=== PATIENT | female | born 1985 | race African-American/Black ===

== ENCOUNTER 2018-05-16 14:06 | Emergency (ER) | payer OTHER ==
[2018-05-16 14:15] VITALS: BP 132/85; TEMP 98; BMI 23.3
[2018-05-16] MEDS ORDERED: SODIUM CHLORIDE 1,000 ML IV STA (14:29)
--- NOTE | 2018-05-16 14:31 | PDOC ---
History of Present Illness - General Chief Complaint: Pain Stated Complaint: ABD Time Seen by Provider: 05/16/18 14:22 History Source: Patient - History of Present Illness Timing/Duration: reports: getting worse, intermittent Abdominal Pain Onset Location: reports: generalized abdomen Past History - Past Medical History Allergies/Adverse Reactions: Allergies Allergy/AdvReac Type Severity Reaction Status Date / Time No Known Allergies Allergy Verified 05/16/18 14:13 Home Medications: Ambulatory Orders Unobtainable 05/16/18 COPD: No - Suicide/Smoking/Psychosocial Hx Smoking History: Never smoked Have you smoked in the past 12 months: No Information on smoking cessation initiated: No Hx Alcohol Use: No Drug/Substance Use Hx: No Review of Systems - Review of Systems Constitutional: Yes: Weakness. No: Chills, Fever ABD/GI: Yes: Diarrhea, Abdominal cramping. No: Constipated, Nausea, Rectal Bleeding, Vomiting : No: Dysuria *Physical Exam - Vital Signs Last Vital Signs Temp Pulse Resp BP Pulse Ox 98.0 F 102 H 16 132/85 97 05/16/18 14:13 05/16/18 14:13 05/16/18 14:13 05/16/18 14:13 05/16/18 14:13 - Physical Exam General Appearance: Yes: Appropriately Dressed, Mild Distress HEENT: positive: Normal Voice Neck: positive: Supple Respiratory/Chest: negative: Respiratory Distress Gastrointestinal/Abdominal: positive: Normal Bowel Sounds, Tender, Soft. negative: Distended, Guarding, Rebound Integumentary: positive: Dry, Warm Neurologic: positive: Fully Oriented, Alert, Normal Mood/Affect Moderate Sedation - Procedure Monitoring Vital Signs: Procedure Monitoring Vital Signs Temperature 98.0 F 05/16/18 14:13 Pulse Rate 102 H 05/16/18 14:13 Respiratory Rate 16 05/16/18 14:13 Blood Pressure 132/85 05/16/18 14:13 O2 Sat by Pulse Oximetry (%) 97 05/16/18 14:13 ED Treatment Course - LABORATORY CBC & Chemistry Diagram: 05/16/18 14:55 05/16/18 14:55 Medical Decision Making - Medical Decision Making 05/16/18 14:27 33 yo F, GERD, not on medication, here with persistent diarrhea. Patient states for the past 2 weeks has had intermittent non-bloody watery diarrhea and developed diffuse abdominal pain and nausea for the first time today. Now complaining of generalized weakness. No nausea, vomiting, fever or chills. No history of similar episode. No sick contacts, recent travel, antibiotic use or unusual food See exam Persistent diarrhea No RF for serious dysentery Tachy to 102 and appears uncomfortable w/ minimal abd ttp diffusely -IVF -pain control -labs including stool studies 05/16/18 17:00 Labs unremarkable. Patient reports resolution of pain in ED and feels well enough to go home w/ supportive tx. Abd benign w/ HR 90 on my reassessment. Unable to give a stool sample here, but states she'll follow-up with her PMD on Saturday to arrange stool studies. Reasons to return discussed with patient *DC/Admit/Observation/Transfer Diagnosis at time of Disposition: Diarrhea Qualifiers: Diarrhea type: unspecified type Qualified Code(s): R19.7 - Diarrhea, unspecified - Discharge Dispostion Disposition: HOME Condition at time of disposition: Improved - Referrals Referrals: Sharmin Jones MD [Primary Care Provider] - - Patient Instructions Printed Discharge Instructions: Diarrhea Additional Instructions: Your labs were normal here. You were unable to give us a stool sample here and was advised to follow-up with your PMD on Saturday to arrange for stool sample to be sent. In the meantime maintain adequate hydration and return to ER for worsening of symptoms - Post Discharge Activity Forms/Work/School Notes: Back to Work
[2018-05-16] MEDS ORDERED: ACETAMINOPHEN 1000 MG/100 ML VIAL (NON FORMULARY) IVPB ONE (14:36)
[2018-05-16 15:06] LABS: BASO % 0.3 % (0-2.0); EOS % 0.5 % (0-4.5); HEMATOCRIT 45.9 % (32.4-45.2); HEMOGLOBIN 15.6 GM/dL (10.7-15.3); MCH 32.1 pg (25.7-33.7); MCHC 34.1 g/dl (32.0-36.0); MEAN CELL VOLUME 94.2 fl (80-96); MEAN PLT VOLUME 8.7 fl (7.5-11.1); MONO % 3.5 % (3.8-10.2); NEUT % 89.7 % (42.8-82.8); PLATELET COUNT 227 K/MM3 (134-434); RBC 4.87 M/mm3 (3.60-5.2); RDW 13.3 % (11.6-15.6); WHITE BLOOD COUNT 10.6 K/mm3 (4.0-10.0)
[2018-05-16 15:42] LABS: ALBUMIN 4.3 g/dl (3.4-5.0); ALK PHOS 60 U/L (45-117); ANION GAP 9 MMOL/L (8-16); BILIRUBIN,TOTAL 1.5 mg/dL (0.2-1); BLOOD UREA NITROGEN 11 mg/dL (7-18); CALCIUM 9.4 mg/dL (8.5-10.1); CHLORIDE 106 mmol/L (98-107); CO2 25 mmol/L (21-32); CREATININE 0.9 mg/dL (0.55-1.3); GLUCOSE,RANDOM 81 mg/dL (74-106); LIPASE 127 U/L (73-393); POTASSIUM 4.3 mmol/L (3.5-5.1); SGOT/AST 23 U/L (15-37); SGPT/ALT 34 U/L (13-61); SODIUM 140 mmol/L (136-145); TOT PROT 8.1 g/dl (6.4-8.2)
[2018-05-16 15:43] LABS: URINE APPEARANCE SLCLOUDY; URINE BILIRUBIN NEGATIVE (<2.0 mg/dL); URINE COLOR DKYELLOW; URINE GLUCOSE (UA) NEGATIVE (NEGATIVE); URINE KETONE 2+ (NEGATIVE); URINE LEUK ESTERASE 2+ (NEGATIVE); URINE NITRITE NEGATIVE (NEGATIVE); URINE PROTEIN NEGATIVE (NEGATIVE); URINE UROBILINOGEN NEGATIVE mg/dL (0.2-1.0)
[2018-05-16 15:50] LABS: EPI CELLS FEW /HPF (FEW); URINE BACTERIA RARE /hpf (NONE SEEN); URINE MUCUS MANY
[2018-05-16 17:25] VITALS: PULSE 89
== END 2018-05-16 17:05 | disposition home or self-care (01) ==
LOC: JER 14:06
PROC: 3E033NZ Introduction of Analgesics, Hypnotics, Sedatives into Peripheral Vein, Percutaneous Approach (ICD-10-PCS; principal; 2018-05-16)
PROC: 3E0337Z Introduction of Electrolytic and Water Balance Substance into Peripheral Vein, Percutaneous Approach (ICD-10-PCS; 2018-05-16)
DX: R19.7 Diarrhea, unspecified (principal)
CPT/HCPCS: 36415; 80053; 81003; 81015; 83690; 84703; 85025; 99282-25; J0131; J7030

== ENCOUNTER → 2018-08-07 | Day surgery (SDC) | payer OTHER ==
--- NOTE | 2018-08-08 16:11 | PATH ---
Cytology Non-Gynecological Report Patient Name: NATTY ESQUIVEL [facility]. Rec. #: [id number] /Age/Gender: 1985 (Age: 33) / F Account: [id number] Location: RADIOLOGY INTER Taken: 08/07/2018 Received: 08/07/2018 Reported: 08/08/2018 Physicians: Ronan Pereira M.D. Specimen(s) Received RIGHT THYROID FNA Clinical History Right 1.39 x 0.88 x 1.09 cm Final Diagnosis THYROID, RIGHT, FINE NEEDLE ASPIRATION: SATISFACTORY FOR EVALUATION B[place] CATEGORY II: BENIGN (NO MALIGNANT CELLS IDENTIFIED) BENIGN FOLLICULAR CELLS AND HURTHLE CELLS WITH SCATTERED INFILTRATING LYMPHOCYTES AND A LYMPHOID RICH BACKGROUND, ALONG WITH MODERATE TO ABUNDANT COLLOID PRESENT. 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 Recommend correlation with clinical findings and follow up as clinically indicated. Electronically Signed Jarrod Renner M.D. Gross Description Received are eight direct smears, four of which are air-dried and Diff-Quik stained, and four of which are alcohol fixed and Pap stained. Also received is 20 ml of bloody formalin from which one cellblock is prepared.
== END | disposition home or self-care (01) ==
LOC: JRADIR 08:47 → EDSTATUS 10:00
PROVIDERS: ATTEND Internal Medicine Endocrinology, Diabetes & Metabolism
PROC: 0G9H3ZX Drainage of Right Thyroid Gland Lobe, Percutaneous Approach, Diagnostic (ICD-10-PCS; principal; 2018-08-07)
DX: E04.1 Nontoxic single thyroid nodule (principal)
CPT/HCPCS: 76942; 88173; 88305-TC

== ENCOUNTER 2021-05-20 10:03 | Emergency (ER) | payer OTHER ==
[2021-05-20 10:17] VITALS: BP 117/75; PULSE 75; TEMP 97.6; BMI 24.3
== END 2021-05-20 10:40 | disposition home or self-care (01) ==
LOC: JERFT 10:03
DX: S29.012A Strain of muscle and tendon of back wall of thorax, initial encounter (principal); S59.901A Unspecified injury of right elbow, initial encounter; W00.0XXA Fall on same level due to ice and snow, initial encounter
CPT/HCPCS: 99281-25

== ENCOUNTER 2023-01-01 20:33 | Emergency (ER) | payer OTHER ==
[2023-01-01 20:39] VITALS: BP 124/87; PULSE 106; RESP 18; TEMP 98.4; BMI 26.5
== END 2023-01-01 22:16 | disposition home or self-care (01) ==
LOC: JERFT 20:33
DX: R09.81 Nasal congestion (principal); J06.9 Acute upper respiratory infection, unspecified; J31.0 Chronic rhinitis; Z20.822 Contact with and (suspected) exposure to COVID-19
CPT/HCPCS: 0241U-QW; 87651

== ENCOUNTER 2024-01-29 18:09 | Emergency (ER) | payer OTHER ==
[2024-01-29 18:30] VITALS: TEMP 98; BMI 28.5
[2024-01-29] MEDS ORDERED: METOCLOPRAMIDE HCL INJECTION 10 MG/2 ML VIAL ONE (20:15)
[2024-01-29] MEDS ORDERED: ACETAMINOPHEN INJECTION 100 ML ONE (20:16)
[2024-01-29] MEDS: ACETAMINOPHEN 1000 MG/100 ML BAG IVPB ONE (20:22)
[2024-01-29 20:27] LABS: BASO % 0.7 % (0-2.0); HEMATOCRIT 41.8 % (32.4-45.2); HEMOGLOBIN 13.8 GM/dL (10.7-15.3); LYMPH % 28.3 % (8-40); MCH 30.8 pg (25.7-33.7); MCHC 33.1 g/dl (32.0-36.0); MEAN CELL VOLUME 93.1 fl (80-96); MEAN PLT VOLUME 8.5 fl (7.5-11.1); MONO % 5.6 % (3.8-10.2); NEUT % 63.4 % (42.8-82.8); PLATELET COUNT 223 10^3/uL (134-434); RBC 4.49 M/mm3 (3.60-5.2); WHITE BLOOD COUNT 9.5 K/mm3 (4.0-10.0)
[2024-01-29 21:02] LABS: POTASSIUM 4.1 mmol/L (3.5-5.1)
[2024-01-29 21:04] LABS: CALCIUM 9.3 mg/dL (8.5-10.1)
[2024-01-29 21:06] LABS: MAGNESIUM 1.8 mg/dL (1.8-2.4)
[2024-01-29 21:07] LABS: CREATININE 0.8 mg/dL (0.55-1.3)
[2024-01-29 21:10] LABS: BILIRUBIN,TOTAL 0.6 mg/dL (0.2-1); TOT PROT 7.4 g/dl (6.4-8.2)
[2024-01-29] MEDS: LACTATED RINGERS SOLUTION 1000 ML INFUS.BAG IV ONE (21:29)
[2024-01-29] MEDS: METOCLOPRAMIDE HCL INJECTION 10 MG/2 ML VIAL IVPB ONE (21:29)
[2024-01-29 21:36] LABS: EPI CELLS >36 /uL (0-25.1); HYALINE CASTS 20 /uL (0-3.1); PH,URINE 5.5 (5.0-8.0); URINE APPEARANCE CLEAR; URINE BACTERIA 179 /uL (0-1359); URINE BILIRUBIN NEGATIVE (NEGATIVE); URINE COLOR YELLOW; URINE GLUCOSE (UA) NEGATIVE (NEGATIVE); URINE KETONE TRACE (NEGATIVE); URINE LEUK ESTERASE NEGATIVE (NEGATIVE); URINE NITRITE NEGATIVE (NEGATIVE); URINE PROTEIN NEGATIVE (NEGATIVE); URINE RBC 22 /uL (0-23.9); URINE UROBILINOGEN 0.2 mg/dL (0.2-1.0)
[2024-01-29 21:48] LABS: HIV INTERPRETATION NEGATIVE (NEGATIVE)
[2024-01-29 22:06] LABS: URINE WBC 58.7 /uL (0-25.8)
[2024-01-29 23:10] VITALS: BP 119/65; PULSE 76; RESP 15
== END 2024-01-29 23:11 | disposition home or self-care (01) ==
LOC: JER 18:09
PROC: 3E033NZ Introduction of Analgesics, Hypnotics, Sedatives into Peripheral Vein, Percutaneous Approach (ICD-10-PCS; principal; 2024-01-29)
PROC: 3E033GC Introduction of Other Therapeutic Substance into Peripheral Vein, Percutaneous Approach (ICD-10-PCS; 2024-01-29)
DX: R53.1 Weakness (principal); R55 Syncope and collapse; R51.9 Headache, unspecified; R53.83 Other fatigue; R29.898 Other symptoms and signs involving the musculoskeletal system; Z20.822 Contact with and (suspected) exposure to COVID-19
CPT/HCPCS: 0241U-QW; 36415; 71045-TC-FY; 80053; 81003; 83735; 84443; 84703; 85025; 86803; 86850; 86900; 86901; 87389; 93005; 93010; 99285-25; J0131

== ENCOUNTER 2024-06-02 08:18 | Emergency (ER) | payer OTHER ==
[2024-06-02 09:07] VITALS: BP 130/85; PULSE 75; RESP 18; TEMP 97.9; BMI 29.0
[2024-06-02] MEDS ORDERED: IBUPROFEN 400 MG TABLET (FP) PO ONE (09:08)
[2024-06-02] MEDS: IBUPROFEN 400 MG TABLET (FP) PO ONE (09:11)
== END 2024-06-02 10:33 | disposition home or self-care (01) ==
LOC: JERFT 08:18 → JER 08:18 → JERFT 10:33
DX: U07.1 COVID-19 (principal); J06.9 Acute upper respiratory infection, unspecified; R05.9 Cough, unspecified; R09.81 Nasal congestion; M79.10 Myalgia, unspecified site; H92.01 Otalgia, right ear
CPT/HCPCS: 0241U-QW; 87651; 99283-25